=== PATIENT | female | born 1945 | race Caucasian/White ===

== ENCOUNTER 2017-05-01 21:49 | Inpatient (IN) | payer MEDICARE, BC ==
[2017-05-01] MEDS: IPRATROPIUM (NEB) 0.5 MG/2.5 ML AMP INH (22:43)
[2017-05-01] MEDS: ALBUTEROL 0.5% (NEB) 2.5 MG/0.5 ML AMP INH (22:43)
[2017-05-01 22:46] LABS: WHITE BLOOD COUNT 16.7 10^3/ul (4.8-10.8)
[2017-05-01 22:46] LABS: HEMATOCRIT 35.6 % (37.0-47.0); HEMOGLOBIN 11.8 g/dl (12.0-16.0); MEAN CORPUSCULAR HEMOGLOBIN 27.7 pg (29.0-33.0); MEAN CORPUSCULAR HGB CONC 33.1 g/dl (32.0-37.0); MEAN CORPUSCULAR VOLUME 83.6 fl (82.0-101.0); MEAN PLATELET VOLUME 9.6 fl (7.4-10.4); PLATELET COUNT 154 10^3/UL (140-415); RED BLOOD COUNT 4.26 10^6/ul (4.20-5.40)
[2017-05-01 22:50] LABS: ADD MAN DIFF? YES; POSITIVE DIFF @See below
[2017-05-01 23:03] LABS: ALANINE AMINOTRANSFERASE 48 IU/L (13-69); ALBUMIN 3.9 g/dl (3.3-4.9); ALBUMIN/GLOBULIN RATIO 1.11; ALKALINE PHOSPHATASE 59 IU/L (42-121); ANION GAP 18 (8-16); ASPARTATE AMINO TRANSFERASE 43 IU/L (15-46); BILIRUBIN,INDIRECT 0.6 mg/dl (0-1.1); BILIRUBIN,TOTAL 0.6 mg/dl (0.2-1.3); BLOOD UREA NITROGEN 19 mg/dl (7-20); CALCIUM 8.8 mg/dl (8.4-10.2); CARBON DIOXIDE 23 mmol/L (21-31); CHLORIDE 100 mmol/L (97-110); GLUCOSE 189 mg/dl (70-220); POTASSIUM 4.1 mmol/L (3.5-5.1); SODIUM 137 mmol/L (135-144); TOTAL PROTEIN 7.4 g/dl (6.1-8.1)
[2017-05-01 23:11] LABS: INR 1.19; PROTIME 15.3 Sec (11.9-14.9); PT RATIO 1.2
[2017-05-01 23:12] LABS: PARTIAL THROMBOPLASTIN TIME 34.6 Sec (25.0-35.0)
[2017-05-01 23:13] LABS: ANISOCYTOSIS 1+ (0-0); BAND NEUTROPHILS #M 1.6 10^3/ul (0.0-0.6); BAND NEUTROPHILS % (M) 10 % (0-4); GIANT THROMBO% (M) 1 % (0-0); LYMPHOCYTES #M 0.6 10^3/ul (0.8-2.9); LYMPHOCYTES % (M) 4 % (15-51); METAMYELOCYTES #M 0.1 10^3/ul (0.0-0.0); METAMYELOCYTES %M 1 % (0-0); MICROCYTOSIS 1+ (0-0); MONOCYTE #M 0.5 10^3/ul (0.3-0.9); MONOCYTES % (M) 3 % (0-11); PLATELET MORPHOLOGY COMMENT @See below; SEGMENTED NEUTROPHILS (M) % 82 % (39-77); SMUDGE%M 1 % (0-0)
[2017-05-01 23:15] LABS: B-TYPE NATRIURETIC PEPTIDE 1920 PG/ML (0-125); TROPONIN-I 0.037 ng/ml (0.00-0.12)
[2017-05-01] MEDS: SOD CHLORIDE 0.9% IV (23:38)
[2017-05-01] MEDS: ACETAMINOPHEN 500 MG TAB PO (23:42)
[2017-05-01 23:43] LABS: AADO2 Arterial 258.9 mmHg (7.0-24.0); Allen Test ACCEPTAB; Arterial Base Excess -5.9 mmol/L (-3.0-3); Arterial Blood Gas Oxygen Sat 94.6 mmHG (95.0-100.0); Arterial COHb 0.3 % (0.0-3.0); Arterial Fraction of Oxyhgb 94.1 % (93.0-99.0); Arterial MetHb 0.2 % (0.0-1.5); Arterial Total Hemglobin 13.4 g/dl (12.0-18.0); Arterial pCO2 35.4 mmhg (35-45); MODE AEROSOL MASK; Site Right Radial
[2017-05-01] MEDS: LORAZEPAM 2 MG INJ IV (23:53)
[2017-05-01] MEDS: ONDANSETRON 4 MG INJ IV (23:54)
[2017-05-02 00:14] LABS: LACTIC ACID 7.3 mmol/L (0.5-2.0)
[2017-05-02] MEDS: LEVOFLOXACIN 750MG/D5W (PMX) 150 ML IVPB (01:18)
[2017-05-02] MEDS ORDERED: ALBUTEROL HFA 8 GM INHALER INH (01:30)
[2017-05-02] MEDS ORDERED: NACL 0.9% 3 ML SYG IV (01:30)
[2017-05-02] MEDS ORDERED: GLUCAGON 1 MG INJ IM (02:00)
[2017-05-02] MEDS ORDERED: DEXTROSE 50% 50 ML SYRINGE IV ×2 (02:00)
[2017-05-02] MEDS: ACCU-CHEK XX (02:00)
[2017-05-02] MEDS ORDERED: VANCOMYCIN IV PER PHARMACY XX (02:00)
[2017-05-02] MEDS ORDERED: GLUCOSE GEL 15 GRAM TUBE PO (02:00)
[2017-05-02] MEDS ORDERED: GLUCOSE GEL 15 GRAM TUBE BUCCAL (02:00)
[2017-05-02] MEDS: ALBUMIN HUMAN 25% 100 ML IV ×2 (02:47→04:05)
[2017-05-02] MEDS: VANCOMYCIN 1 GM (PMX) 250 ML IVPB (02:51)
[2017-05-02 03:23] LABS: CREATINE KINASE 202 IU/L (23-200)
[2017-05-02 03:35] LABS: CK INDEX 0.9; CK-MB 1.84 ng/ml (0.0-2.4); TROPONIN-I 0.084 ng/ml (0.00-0.12)
[2017-05-02 05:10] LABS: ADD UMIC YES; UR ASCORBIC ACID NEGATIVE (NEGATIVE); UR BACTERIA FEW /HPF (NONE SEEN); UR BILIRUBIN (Dip) NEGATIVE (NEGATIVE); UR BLOOD (Dip) 1+ mg/dL (NEGATIVE); UR CLARITY CLOUDY (CLEAR); UR COLOR YELLOW (YELLOW); UR GLUCOSE (Dip) NEGATIVE (NEGATIVE); UR KETONES (Dip) NEGATIVE (NEGATIVE); UR LEUKOCYTE ESTERASE (Dip) NEGATIVE Leu/ul (NEGATIVE); UR MUCUS FEW /HPF (NONE SEEN); UR NITRITE (Dip) NEGATIVE (NEGATIVE); UR NONSQUAMOUS EPITHELIAL CELL <1 /HPF (NONE SEEN); UR RBC 13 /HPF (0-5); UR SPECIFIC GRAVITY (Dip) 1.015 (1.003-1.030); UR SQUAMOUS EPITHELIAL CELL MANY /HPF (FEW); UR TOTAL PROTEIN (Dip) 3+ mg/dl (NEGATIVE); UR TRANSITIONAL EPI CELL FEW /HPF (NONE SEEN); UR UROBILINOGEN (Dip) NEGATIVE (NEGATIVE); UR WBC 1 /HPF (0-5)
[2017-05-02] MEDS: LORAZEPAM 2 MG INJ IV ×2 (05:38→14:26)
[2017-05-02] MEDS: LEVOTHYROXINE 50 MCG TAB PO (05:57)
[2017-05-02] MEDS: PANTOPRAZOLE (EC) 40 MG TAB PO (06:22)
[2017-05-02 07:05] LABS: LACTIC ACID 2.7 mmol/L (0.5-2.0)
[2017-05-02] MEDS: FUROSEMIDE 20 MG INJ IV (07:30)
[2017-05-02] MEDS: INSULIN ASPART [NOVOLOG] 3 ML PEN SC ×4 (08:00→22:39)
[2017-05-02] MEDS: ALBUTEROL/IPRATROPIUM (NEB) 3 ML AMP HHN ×4 (08:12→21:31)
[2017-05-02] MEDS: INSULIN GLARGINE [LANtus] 3 ML PEN SC ×2 (08:36→22:36)
[2017-05-02] MEDS: CYCLOSPORINE 0.05% OPH DROPERETTE BOTH EYES ×2 (08:38→21:00)
[2017-05-02] MEDS: ESCITALOPRAM 10 MG TAB PO (08:39)
[2017-05-02] MEDS: ONDANSETRON 4 MG INJ IV ×2 (08:39→14:56)
[2017-05-02] MEDS: METHYLPREDNISOLONE 40 MG INJ IV ×2 (08:39→21:54)
[2017-05-02] MEDS: POTASSIUM CHLORIDE (SR) 20 MEQ TAB PO (08:40)
[2017-05-02] MEDS: ASPIRIN (EC) 81 MG TAB PO (08:40)
[2017-05-02 08:47] LABS: CREATINE KINASE 251 IU/L (23-200)
[2017-05-02 09:00] LABS: CK INDEX 1.4; CK-MB 3.54 ng/ml (0.0-2.4); TROPONIN-I 0.084 ng/ml (0.00-0.12)
[2017-05-02] MEDS: SALMETEROL/FLUTICASONE 250/50 INHA INH ×2 (09:41→21:00)
[2017-05-02 11:39] LABS: LACTIC ACID 3.4 mmol/L (0.5-2.0)
[2017-05-02] MEDS: VANCOMYCIN 1 GM 250 ML IVPB ×2 (13:50→22:53)
[2017-05-02 14:26] LABS: AADO2 Arterial 114.6 mmHg (7.0-24.0); Allen Test ACCEPTAB; Arterial Base Excess -6.2 mmol/L (-3.0-3); Arterial Blood Gas Oxygen Sat 92.4 mmHG (95.0-100.0); Arterial COHb 0.3 % (0.0-3.0); Arterial Fraction of Oxyhgb 92.1 % (93.0-99.0); Arterial HCO3 17.7 mmol/L (22.0-26.0); Arterial MetHb 0 % (0.0-1.5); Arterial Total Hemglobin 9.8 g/dl (12.0-18.0); Arterial pCO2 29.7 mmhg (35-45); Blood Gas IEPAP 18/6; MODE MASK - BIPAP; Site Right Radial
[2017-05-02] MEDS ORDERED: VANCOMYCIN 1.5 GM in DEXTROSE 5% 500 ML IVPB (21:00)
[2017-05-02] MEDS: ATORVASTATIN 20 MG TAB PO (21:54)
[2017-05-03] MEDS: ALBUTEROL/IPRATROPIUM (NEB) 3 ML AMP HHN ×6 (01:00→20:33)
[2017-05-03] MEDS: LEVOFLOXACIN 750MG/D5W (PMX) 150 ML IVPB (01:36)
[2017-05-03] MEDS: ALPRAZOLAM 0.5 MG TAB PO (01:37)
[2017-05-03] MEDS: ACCU-CHEK XX ×16 (02:00→23:15)
[2017-05-03 05:19] LABS: WHITE BLOOD COUNT 7.3 10^3/ul (4.8-10.8)
[2017-05-03 05:19] LABS: ABNORMAL IP MESSAGE 1; HEMATOCRIT 29.4 % (37.0-47.0); HEMOGLOBIN 9.4 g/dl (12.0-16.0); MEAN CORPUSCULAR HEMOGLOBIN 27.6 pg (29.0-33.0); MEAN CORPUSCULAR VOLUME 86.5 fl (82.0-101.0); MEAN PLATELET VOLUME 10.3 fl (7.4-10.4); PLATELET COUNT 117 10^3/UL (140-415); RED CELL DISTRIBUTION WIDTH 16.5 % (11.5-14.5)
[2017-05-03] MEDS: LABETALOL HCL 20MG INJ IV (05:43)
[2017-05-03 05:57] LABS: PHOSPHORUS 2.6 mg/dl (2.5-4.9)
[2017-05-03 06:17] LABS: POSITIVE DIFF @See below
[2017-05-03 06:19] LABS: ADD MAN DIFF? YES
[2017-05-03 06:25] LABS: ALANINE AMINOTRANSFERASE 32 IU/L (13-69); ALBUMIN 3.6 g/dl (3.3-4.9); ALBUMIN/GLOBULIN RATIO 1.28; ALKALINE PHOSPHATASE 55 IU/L (42-121); ANION GAP 16 (8-16); ASPARTATE AMINO TRANSFERASE 33 IU/L (15-46); BILIRUBIN,INDIRECT 0.3 mg/dl (0-1.1); BILIRUBIN,TOTAL 0.3 mg/dl (0.2-1.3); BLOOD UREA NITROGEN 26 mg/dl (7-20); CALCIUM 7.5 mg/dl (8.4-10.2); CARBON DIOXIDE 22 mmol/L (21-31); CHLORIDE 106 mmol/L (97-110); CHOL/HDL RATIO 4.8 RATIO; CHOLESTEROL 58 mg/dl (100-200); CREATININE 1.02 mg/dl (0.44-1.00); GLUCOSE 332 mg/dl (70-220); HDL CHOLESTEROL 12 mg/dl (33-92); LDL CHOLESTEROL,CALCULATED 24 mg/dl; MAGNESIUM 1.9 mg/dl (1.7-2.5); POTASSIUM 4.7 mmol/L (3.5-5.1); SODIUM 139 mmol/L (135-144); TOTAL PROTEIN 6.4 g/dl (6.1-8.1); TRIGLYCERIDES 111 mg/dl (0-149)
[2017-05-03 07:11] LABS: HEMOGLOBIN A1C 7.5 % (0-5.9)
[2017-05-03 08:02] LABS: THYROID STIMULATING HORMONE 0.213 MIU/L (0.465-4.680)
[2017-05-03 08:04] LABS: AADO2 Arterial 165.1 mmHg (7.0-24.0); Allen Test ACCEPTAB; Arterial Base Excess -2.5 mmol/L (-3.0-3); Arterial Blood Gas Oxygen Sat 94.5 mmHG (95.0-100.0); Arterial COHb 0.3 % (0.0-3.0); Arterial HCO3 22.6 mmol/L (22.0-26.0); Arterial MetHb 0.2 % (0.0-1.5); Arterial Total Hemglobin 9.9 g/dl (12.0-18.0); Arterial pCO2 40.1 mmhg (35-45); Blood Gas IEPAP 15/5; Blood Gas PS 10; MODE MASK - BIPAP; Site Right Radial
[2017-05-03 08:41] LABS: ANISOCYTOSIS 2+ (0-0); BAND NEUTROPHILS % (M) 15 % (0-4); LYMPHOCYTES #M 0.6 10^3/ul (0.8-2.9); LYMPHOCYTES % (M) 9 % (15-51); MICROCYTOSIS 2+ (0-0); MONOCYTE #M 0.1 10^3/ul (0.3-0.9); MONOCYTES % (M) 2 % (0-11); PLATELET ESTIMATE DECREASED; POIKILOCYTOSIS 2+ (0-0); POLYCHROMASIA 2+ (0-0); SEG NEUT #M 5.5 10^3/ul (1.7-7.5); SEGMENTED NEUTROPHILS (M) % 74 % (39-77); SMUDGE%M 3 % (0-0)
[2017-05-03] MEDS: SALMETEROL/FLUTICASONE 250/50 INHA INH ×2 (09:00→21:08)
[2017-05-03] MEDS: LEVOTHYROXINE 50 MCG TAB PO (09:02)
[2017-05-03] MEDS: METHYLPREDNISOLONE 40 MG INJ IV ×2 (09:02→21:08)
[2017-05-03] MEDS: POTASSIUM CHLORIDE (SR) 20 MEQ TAB PO (09:02)
[2017-05-03] MEDS: ASPIRIN (EC) 81 MG TAB PO (09:02)
[2017-05-03] MEDS: PANTOPRAZOLE (EC) 40 MG TAB PO (09:02)
[2017-05-03] MEDS: CYCLOSPORINE 0.05% OPH DROPERETTE BOTH EYES ×2 (09:03→21:08)
[2017-05-03] MEDS: ESCITALOPRAM 10 MG TAB PO (09:03)
[2017-05-03] MEDS ORDERED: DEXTROSE 50% 50 ML SYRINGE IV ×2 (09:30)
[2017-05-03] MEDS: LORAZEPAM 2 MG INJ IV ×2 (09:42→20:54)
[2017-05-03] MEDS: ONDANSETRON 4 MG INJ IV ×2 (09:42→21:38)
[2017-05-03] MEDS: INSULIN HUMAN REGULAR 100 UNIT in SOD CHLORIDE 0.9% 99 ML IV ×2 (10:50→20:00)
[2017-05-03] MEDS: INSULIN ASPART [NOVOLOG] 3 ML PEN SC ×2 (11:30→17:35)
[2017-05-03] MEDS: VANCOMYCIN 1 GM 250 ML IVPB ×2 (11:49→23:15)
[2017-05-03] MEDS: ATORVASTATIN 20 MG TAB PO (21:08)
[2017-05-03] MEDS: ACETAMINOPHEN 325 MG TAB PO (21:09)
[2017-05-03 22:43] LABS: VANCOMYCIN,TROUGH 13.4 ug/ml (10.0-20.0)
[2017-05-04] MEDS: ACCU-CHEK XX ×24 (00:22→23:30)
[2017-05-04] MEDS: ALBUTEROL/IPRATROPIUM (NEB) 3 ML AMP HHN ×5 (01:26→20:00)
[2017-05-04] MEDS: LEVOFLOXACIN 750MG/D5W (PMX) 150 ML IVPB (01:42)
[2017-05-04 06:13] LABS: AADO2 Arterial 168.7 mmHg (7.0-24.0); Allen Test ACCEPTAB; Arterial Blood Gas Oxygen Sat 94.5 mmHG (95.0-100.0); Arterial COHb 0.3 % (0.0-3.0); Arterial HCO3 23.5 mmol/L (22.0-26.0); Arterial MetHb 0.2 % (0.0-1.5); Arterial Total Hemglobin 11.1 g/dl (12.0-18.0); Arterial pCO2 38.2 mmhg (35-45); Blood Gas IEPAP 15/5; Blood Gas PS 10; MODE MASK - BIPAP; Site Right Radial
[2017-05-04] MEDS: PANTOPRAZOLE (EC) 40 MG TAB PO (06:27)
[2017-05-04] MEDS: LEVOTHYROXINE 50 MCG TAB PO (06:27)
[2017-05-04 06:38] LABS: ADD MAN DIFF? NO
[2017-05-04 06:46] LABS: WHITE BLOOD COUNT 6.1 10^3/ul (4.8-10.8)
[2017-05-04 06:46] LABS: ABNORMAL IP MESSAGE 1; HEMATOCRIT 29.2 % (37.0-47.0); HEMOGLOBIN 9.3 g/dl (12.0-16.0); LYMPHOCYTES # 0.4 10^3/ul (0.8-2.9); LYMPHOCYTES % 7.2 % (15.0-51.0); MEAN CORPUSCULAR HEMOGLOBIN 27.4 pg (29.0-33.0); MEAN CORPUSCULAR HGB CONC 31.8 g/dl (32.0-37.0); MEAN CORPUSCULAR VOLUME 86.1 fl (82.0-101.0); MEAN PLATELET VOLUME 10.6 fl (7.4-10.4); MONOCYTE # 0.2 10^3/ul (0.3-0.9); MONOCYTES % 3.4 % (0.0-11.0); NEUTROPHIL # 5.4 10^3/ul (1.6-7.5); NEUTROPHILS % 88.6 % (39.0-77.0); PLATELET COUNT 169 10^3/UL (140-415); RED BLOOD COUNT 3.39 10^6/ul (4.20-5.40); RED CELL DISTRIBUTION WIDTH 16.4 % (11.5-14.5)
[2017-05-04 07:00] LABS: POSITIVE DIFF @See below
[2017-05-04 07:14] LABS: ALANINE AMINOTRANSFERASE 42 IU/L (13-69); ALBUMIN 3.5 g/dl (3.3-4.9); ALBUMIN/GLOBULIN RATIO 1.12; ALKALINE PHOSPHATASE 55 IU/L (42-121); ANION GAP 16 (8-16); ASPARTATE AMINO TRANSFERASE 44 IU/L (15-46); BILIRUBIN,INDIRECT 0.3 mg/dl (0-1.1); BILIRUBIN,TOTAL 0.3 mg/dl (0.2-1.3); BLOOD UREA NITROGEN 42 mg/dl (7-20); CALCIUM 8.2 mg/dl (8.4-10.2); CARBON DIOXIDE 24 mmol/L (21-31); CHLORIDE 110 mmol/L (97-110); CREATININE 1.06 mg/dl (0.44-1.00); GLUCOSE 143 mg/dl (70-220); POTASSIUM 4.4 mmol/L (3.5-5.1); SODIUM 146 mmol/L (135-144); TOTAL PROTEIN 6.6 g/dl (6.1-8.1)
[2017-05-04] MEDS: INSULIN ASPART [NOVOLOG] 3 ML PEN SC ×3 (07:35→17:35)
[2017-05-04] MEDS: CYCLOSPORINE 0.05% OPH DROPERETTE BOTH EYES ×2 (08:24→08:48)
[2017-05-04] MEDS: POTASSIUM CHLORIDE (SR) 20 MEQ TAB PO (08:48)
[2017-05-04] MEDS: ACETAMINOPHEN 325 MG TAB PO (08:48)
[2017-05-04] MEDS: DOCUSATE SODIUM 100 MG CAP PO (08:48)
[2017-05-04] MEDS: LORATADINE 10 MG TAB PO (08:48)
[2017-05-04] MEDS: ESCITALOPRAM 10 MG TAB PO (08:48)
[2017-05-04] MEDS: ASPIRIN (EC) 81 MG TAB PO (08:48)
[2017-05-04] MEDS: SALMETEROL/FLUTICASONE 250/50 INHA INH ×2 (08:49→20:45)
[2017-05-04] MEDS: METHYLPREDNISOLONE 40 MG INJ IV ×2 (08:49→20:45)
[2017-05-04] MEDS: LABETALOL HCL 20MG INJ IV ×2 (08:52→18:34)
[2017-05-04] MEDS: INSULIN HUMAN REGULAR 100 UNIT in SOD CHLORIDE 0.9% 99 ML IV (11:31)
[2017-05-04] MEDS: VANCOMYCIN 1.25 GM in SODIUM CHLORIDE 0.45 % 250 ML IVPB (11:47)
[2017-05-04] MEDS: LORAZEPAM 2 MG INJ IV (18:29)
[2017-05-04] MEDS: NACL 3% FOR INHALATION 15 ML NEBU NEB (19:20)
[2017-05-04] MEDS: ATORVASTATIN 20 MG TAB PO (20:45)
[2017-05-05] MEDS: ACCU-CHEK XX ×24 (00:30→23:30)
[2017-05-05] MEDS: LEVOFLOXACIN 750MG/D5W (PMX) 150 ML IVPB (00:33)
[2017-05-05] MEDS: ALBUTEROL/IPRATROPIUM (NEB) 3 ML AMP HHN ×6 (01:01→21:00)
[2017-05-05 05:52] LABS: ADD MAN DIFF? NO
[2017-05-05 06:04] LABS: WHITE BLOOD COUNT 6.5 10^3/ul (4.8-10.8)
[2017-05-05 06:04] LABS: BASOPHILS % 0.2 % (0.0-2.0); HEMATOCRIT 28.4 % (37.0-47.0); HEMOGLOBIN 9.3 g/dl (12.0-16.0); LYMPHOCYTES # 0.8 10^3/ul (0.8-2.9); LYMPHOCYTES % 12.5 % (15.0-51.0); MEAN CORPUSCULAR HGB CONC 32.7 g/dl (32.0-37.0); MEAN CORPUSCULAR VOLUME 85.5 fl (82.0-101.0); MEAN PLATELET VOLUME 10.3 fl (7.4-10.4); MONOCYTE # 0.5 10^3/ul (0.3-0.9); MONOCYTES % 7.6 % (0.0-11.0); NEUTROPHIL # 5.1 10^3/ul (1.6-7.5); NEUTROPHILS % 78.5 % (39.0-77.0); PLATELET COUNT 214 10^3/UL (140-415); RED BLOOD COUNT 3.32 10^6/ul (4.20-5.40)
[2017-05-05 06:12] LABS: ALANINE AMINOTRANSFERASE 45 IU/L (13-69); ALBUMIN 3.5 g/dl (3.3-4.9); ALBUMIN/GLOBULIN RATIO 1.12; ALKALINE PHOSPHATASE 46 IU/L (42-121); ANION GAP 15 (8-16); ASPARTATE AMINO TRANSFERASE 44 IU/L (15-46); BILIRUBIN,INDIRECT 0.5 mg/dl (0-1.1); BILIRUBIN,TOTAL 0.5 mg/dl (0.2-1.3); BLOOD UREA NITROGEN 43 mg/dl (7-20); CALCIUM 8.3 mg/dl (8.4-10.2); CARBON DIOXIDE 25 mmol/L (21-31); CHLORIDE 111 mmol/L (97-110); CREATININE 1.05 mg/dl (0.44-1.00); GLUCOSE 132 mg/dl (70-220); POTASSIUM 4.4 mmol/L (3.5-5.1); SODIUM 147 mmol/L (135-144); TOTAL PROTEIN 6.6 g/dl (6.1-8.1)
[2017-05-05] MEDS: LEVOTHYROXINE 50 MCG TAB PO (06:17)
[2017-05-05] MEDS: PANTOPRAZOLE (EC) 40 MG TAB PO (06:18)
[2017-05-05] MEDS: LABETALOL HCL 20MG INJ IV (07:08)
[2017-05-05] MEDS: INSULIN ASPART [NOVOLOG] 3 ML PEN SC ×3 (07:35→17:35)
[2017-05-05] MEDS: CYCLOSPORINE 0.05% OPH DROPERETTE BOTH EYES ×2 (09:00→20:48)
[2017-05-05] MEDS: METHYLPREDNISOLONE 40 MG INJ IV ×2 (09:38→20:40)
[2017-05-05] MEDS: ONDANSETRON 4 MG INJ IV (09:38)
[2017-05-05] MEDS: SALMETEROL/FLUTICASONE 250/50 INHA INH ×2 (09:42→20:48)
[2017-05-05] MEDS: POTASSIUM CHLORIDE (SR) 20 MEQ TAB PO (09:45)
[2017-05-05] MEDS: ESCITALOPRAM 10 MG TAB PO (09:46)
[2017-05-05] MEDS: ASPIRIN (EC) 81 MG TAB PO (09:46)
[2017-05-05] MEDS: ACETAMINOPHEN 325 MG TAB PO ×3 (10:08→20:41)
[2017-05-05] MEDS: INSULIN HUMAN REGULAR 100 UNIT in SOD CHLORIDE 0.9% 99 ML IV (12:36)
[2017-05-05] MEDS: LORAZEPAM 2 MG INJ IV (14:06)
[2017-05-05] MEDS: CLINDAMYCIN 600 MG/D5W (PMX) 50 ML IVPB ×2 (14:52→19:00)
[2017-05-05] MEDS: PRIMAQUINE 15 MG TAB PO (15:10)
[2017-05-05] MEDS: ATORVASTATIN 20 MG TAB PO (20:40)
[2017-05-06] MEDS: ACCU-CHEK XX ×24 (00:30→23:40)
[2017-05-06] MEDS: ALBUTEROL/IPRATROPIUM (NEB) 3 ML AMP HHN ×6 (00:46→20:06)
[2017-05-06] MEDS: CLINDAMYCIN 600 MG/D5W (PMX) 50 ML IVPB ×5 (00:52→23:44)
[2017-05-06] MEDS: ONDANSETRON 4 MG INJ IV ×3 (01:16→18:48)
[2017-05-06] MEDS: LEVOFLOXACIN 750MG/D5W (PMX) 150 ML IVPB (01:16)
[2017-05-06] MEDS: LORAZEPAM 2 MG INJ IV ×2 (04:44→20:30)
[2017-05-06] MEDS: ACETAMINOPHEN 325 MG TAB PO ×2 (04:44→18:49)
[2017-05-06 06:02] LABS: ADD MAN DIFF? NO
[2017-05-06 06:16] LABS: WHITE BLOOD COUNT 6.7 10^3/ul (4.8-10.8)
[2017-05-06 06:16] LABS: BASOPHILS % 0.2 % (0.0-2.0); HEMATOCRIT 28.7 % (37.0-47.0); HEMOGLOBIN 9.3 g/dl (12.0-16.0); LYMPHOCYTES # 0.7 10^3/ul (0.8-2.9); MEAN CORPUSCULAR HEMOGLOBIN 27.5 pg (29.0-33.0); MEAN CORPUSCULAR HGB CONC 32.4 g/dl (32.0-37.0); MEAN CORPUSCULAR VOLUME 84.9 fl (82.0-101.0); MEAN PLATELET VOLUME 9.8 fl (7.4-10.4); MONOCYTE # 0.6 10^3/ul (0.3-0.9); MONOCYTES % 9.3 % (0.0-11.0); NEUTROPHIL # 5.2 10^3/ul (1.6-7.5); PLATELET COUNT 251 10^3/UL (140-415); RED BLOOD COUNT 3.38 10^6/ul (4.20-5.40); RED CELL DISTRIBUTION WIDTH 16.8 % (11.5-14.5)
[2017-05-06] MEDS: LEVOTHYROXINE 50 MCG TAB PO (06:29)
[2017-05-06] MEDS: INSULIN HUMAN REGULAR 100 UNIT in SOD CHLORIDE 0.9% 99 ML IV ×2 (06:29→23:51)
[2017-05-06] MEDS: PANTOPRAZOLE (EC) 40 MG TAB PO (06:29)
[2017-05-06 06:44] LABS: ALANINE AMINOTRANSFERASE 47 IU/L (13-69); ALBUMIN 3.3 g/dl (3.3-4.9); ALKALINE PHOSPHATASE 46 IU/L (42-121); ANION GAP 14 (8-16); ASPARTATE AMINO TRANSFERASE 42 IU/L (15-46); BILIRUBIN,INDIRECT 0.7 mg/dl (0-1.1); BILIRUBIN,TOTAL 0.7 mg/dl (0.2-1.3); BLOOD UREA NITROGEN 37 mg/dl (7-20); CALCIUM 8.7 mg/dl (8.4-10.2); CARBON DIOXIDE 27 mmol/L (21-31); CHLORIDE 108 mmol/L (97-110); CREATININE 0.97 mg/dl (0.44-1.00); GLUCOSE 158 mg/dl (70-220); POTASSIUM 4.3 mmol/L (3.5-5.1); SODIUM 145 mmol/L (135-144); TOTAL PROTEIN 6.6 g/dl (6.1-8.1)
[2017-05-06] MEDS: INSULIN ASPART [NOVOLOG] 3 ML PEN SC ×2 (07:34→11:30)
[2017-05-06 08:25] LABS: HEMOGLOBIN A1C 7.6 % (0-5.9)
[2017-05-06] MEDS: ASPIRIN (EC) 81 MG TAB PO (08:48)
[2017-05-06] MEDS: POTASSIUM CHLORIDE (SR) 20 MEQ TAB PO (08:48)
[2017-05-06] MEDS: PRIMAQUINE 15 MG TAB PO (08:48)
[2017-05-06] MEDS: ESCITALOPRAM 10 MG TAB PO (08:48)
[2017-05-06] MEDS: METHYLPREDNISOLONE 40 MG INJ IV ×2 (08:48→20:29)
[2017-05-06] MEDS: SALMETEROL/FLUTICASONE 250/50 INHA INH ×2 (08:56→20:29)
[2017-05-06] MEDS: CYCLOSPORINE 0.05% OPH DROPERETTE BOTH EYES ×2 (08:56→20:29)
[2017-05-06] MEDS: ATORVASTATIN 20 MG TAB PO (20:29)
[2017-05-07] MEDS: ALBUTEROL/IPRATROPIUM (NEB) 3 ML AMP HHN ×7 (00:46→20:01)
[2017-05-07] MEDS: ACCU-CHEK XX ×18 (01:20→17:30)
[2017-05-07] MEDS: LEVOFLOXACIN 750MG/D5W (PMX) 150 ML IVPB (01:22)
[2017-05-07] MEDS: CLINDAMYCIN 600 MG/D5W (PMX) 50 ML IVPB ×4 (05:38→23:15)
[2017-05-07 06:24] LABS: ADD MAN DIFF? NO
[2017-05-07 06:26] LABS: WHITE BLOOD COUNT 6.3 10^3/ul (4.8-10.8)
[2017-05-07 06:26] LABS: BASOPHILS % 0.2 % (0.0-2.0); HEMATOCRIT 28.8 % (37.0-47.0); HEMOGLOBIN 9.5 g/dl (12.0-16.0); LYMPHOCYTES # 1.4 10^3/ul (0.8-2.9); LYMPHOCYTES % 21.8 % (15.0-51.0); MEAN CORPUSCULAR HEMOGLOBIN 28.1 pg (29.0-33.0); MEAN CORPUSCULAR VOLUME 85.2 fl (82.0-101.0); MEAN PLATELET VOLUME 9.2 fl (7.4-10.4); MONOCYTE # 0.6 10^3/ul (0.3-0.9); NEUTROPHIL # 4.2 10^3/ul (1.6-7.5); NEUTROPHILS % 66.1 % (39.0-77.0); NUCLEATED RED BLOOD CELLS% 0.3 /100WBC (0.0-0.0); PLATELET COUNT 232 10^3/UL (140-415); RED BLOOD COUNT 3.38 10^6/ul (4.20-5.40); RED CELL DISTRIBUTION WIDTH 16.7 % (11.5-14.5)
[2017-05-07] MEDS: LEVOTHYROXINE 50 MCG TAB PO (06:32)
[2017-05-07] MEDS: PANTOPRAZOLE (EC) 40 MG TAB PO (06:32)
[2017-05-07 07:08] LABS: ALANINE AMINOTRANSFERASE 39 IU/L (13-69); ALBUMIN 3.3 g/dl (3.3-4.9); ALBUMIN/GLOBULIN RATIO 1.22; ALKALINE PHOSPHATASE 43 IU/L (42-121); ANION GAP 16 (8-16); ASPARTATE AMINO TRANSFERASE 33 IU/L (15-46); BILIRUBIN,INDIRECT 0.8 mg/dl (0-1.1); BILIRUBIN,TOTAL 0.8 mg/dl (0.2-1.3); BLOOD UREA NITROGEN 32 mg/dl (7-20); CALCIUM 8.5 mg/dl (8.4-10.2); CARBON DIOXIDE 27 mmol/L (21-31); CHLORIDE 106 mmol/L (97-110); CREATININE 0.95 mg/dl (0.44-1.00); GLUCOSE 141 mg/dl (70-220); POTASSIUM 4.2 mmol/L (3.5-5.1); SODIUM 145 mmol/L (135-144)
[2017-05-07] MEDS: CYCLOSPORINE 0.05% OPH DROPERETTE BOTH EYES (09:00)
[2017-05-07] MEDS: SALMETEROL/FLUTICASONE 250/50 INHA INH ×2 (09:10→20:27)
[2017-05-07] MEDS: METHYLPREDNISOLONE 40 MG INJ IV ×2 (09:10→20:26)
[2017-05-07] MEDS: POTASSIUM CHLORIDE (SR) 20 MEQ TAB PO (09:11)
[2017-05-07] MEDS: ASPIRIN (EC) 81 MG TAB PO (09:11)
[2017-05-07] MEDS: ESCITALOPRAM 10 MG TAB PO (09:11)
[2017-05-07] MEDS: ONDANSETRON 4 MG INJ IV (09:27)
[2017-05-07] MEDS: PRIMAQUINE 15 MG TAB PO (10:34)
[2017-05-07] MEDS: INSULIN ASPART [NOVOLOG] 3 ML PEN SC ×5 (11:30→20:28)
[2017-05-07] MEDS: INSULIN GLARGINE [LANtus] 3 ML PEN SC ×2 (12:22→20:29)
[2017-05-07] MEDS: ACETAMINOPHEN 325 MG TAB PO (16:16)
[2017-05-07] MEDS: NYSTATIN SUSP 5 ML CUP PO ×2 (17:00→20:26)
[2017-05-07] MEDS: FLUCONAZOLE 200 MG/NS (PMX) 100 ML IVPB (17:26)
[2017-05-07 17:41] LABS: HISTOPLASMA GALACTOMANNAN AG U <0.5 ng/mL
[2017-05-07] MEDS: ATORVASTATIN 20 MG TAB PO (20:27)
[2017-05-07] MEDS: NPH, HUMAN INSULIN ISOPHANE 3ML VIAL SC (20:30)
[2017-05-07] MEDS: LORAZEPAM 2 MG INJ IV (20:35)
[2017-05-08] MEDS: LEVOFLOXACIN 750MG/D5W (PMX) 150 ML IVPB (00:12)
[2017-05-08] MEDS: ALBUTEROL/IPRATROPIUM (NEB) 3 ML AMP HHN ×6 (01:12→21:13)
[2017-05-08] MEDS: ACCU-CHEK XX (01:41)
[2017-05-08] MEDS: ACETAMINOPHEN 325 MG TAB PO ×2 (01:41→10:40)
[2017-05-08] MEDS: CLINDAMYCIN 600 MG/D5W (PMX) 50 ML IVPB ×3 (05:17→19:49)
[2017-05-08 05:49] LABS: ADD MAN DIFF? NO
[2017-05-08 06:01] LABS: HEMATOCRIT 28.2 % (37.0-47.0); HEMOGLOBIN 9.3 g/dl (12.0-16.0); LYMPHOCYTES # 0.7 10^3/ul (0.8-2.9); LYMPHOCYTES % 12.5 % (15.0-51.0); MEAN CORPUSCULAR HEMOGLOBIN 28.1 pg (29.0-33.0); MEAN CORPUSCULAR VOLUME 85.2 fl (82.0-101.0); MONOCYTE # 0.3 10^3/ul (0.3-0.9); MONOCYTES % 5.4 % (0.0-11.0); NEUTROPHIL # 4.5 10^3/ul (1.6-7.5); NEUTROPHILS % 80.1 % (39.0-77.0); PLATELET COUNT 239 10^3/UL (140-415); RED BLOOD COUNT 3.31 10^6/ul (4.20-5.40); RED CELL DISTRIBUTION WIDTH 16.6 % (11.5-14.5)
[2017-05-08 06:01] LABS: WHITE BLOOD COUNT 5.6 10^3/ul (4.8-10.8)
[2017-05-08] MEDS: PANTOPRAZOLE (EC) 40 MG TAB PO (06:22)
[2017-05-08] MEDS: LEVOTHYROXINE 50 MCG TAB PO (06:22)
[2017-05-08] MEDS: ONDANSETRON 4 MG INJ IV ×2 (06:22→10:40)
[2017-05-08 06:48] LABS: ANION GAP 16 (8-16); BLOOD UREA NITROGEN 28 mg/dl (7-20); CALCIUM 8.6 mg/dl (8.4-10.2); CARBON DIOXIDE 27 mmol/L (21-31); CHLORIDE 100 mmol/L (97-110); CREATININE 1.02 mg/dl (0.44-1.00); GLUCOSE 214 mg/dl (70-220); MAGNESIUM 1.7 mg/dl (1.7-2.5); PHOSPHORUS 4.9 mg/dl (2.5-4.9); POTASSIUM 5.1 mmol/L (3.5-5.1); SODIUM 138 mmol/L (135-144)
[2017-05-08] MEDS: INSULIN ASPART [NOVOLOG] 3 ML PEN SC ×7 (08:21→20:54)
[2017-05-08 08:32] LABS: AADO2 Arterial 249.7 mmHg (7.0-24.0); Allen Test ACCEPTAB; Arterial Base Excess 0.8 mmol/L (-3.0-3); Arterial Blood Gas Oxygen Sat 93.6 mmHG (95.0-100.0); Arterial COHb 0.7 % (0.0-3.0); Arterial Fraction of Oxyhgb 92.9 % (93.0-99.0); Arterial HCO3 24.1 mmol/L (22.0-26.0); Arterial MetHb 0.1 % (0.0-1.5); Arterial Total Hemglobin 11.5 g/dl (12.0-18.0); MODE HFNC; Site Right Radial
[2017-05-08] MEDS: ESCITALOPRAM 10 MG TAB PO (09:18)
[2017-05-08] MEDS: ASPIRIN (EC) 81 MG TAB PO (09:18)
[2017-05-08] MEDS: NYSTATIN SUSP 5 ML CUP PO ×4 (09:18→21:00)
[2017-05-08] MEDS: PRIMAQUINE 15 MG TAB PO (09:19)
[2017-05-08] MEDS: POTASSIUM CHLORIDE (SR) 20 MEQ TAB PO (09:20)
[2017-05-08] MEDS: NPH, HUMAN INSULIN ISOPHANE 3ML VIAL SC ×2 (09:21→20:58)
[2017-05-08] MEDS: INSULIN GLARGINE [LANtus] 3 ML PEN SC ×2 (09:22→20:58)
[2017-05-08] MEDS: METHYLPREDNISOLONE 40 MG INJ IV ×2 (09:22→20:52)
[2017-05-08] MEDS: SALMETEROL/FLUTICASONE 250/50 INHA INH ×2 (09:38→20:52)
[2017-05-08 10:31] LABS: LYMPHOCYTE - % CD4 (HELPER) 40 % (30-61); LYMPHOCYTE - %CD8 (SUPPRESSOR) 8 % (12-42); LYMPHOCYTE - ABSOLUTE 579 cells/uL (850-3900); LYMPHOCYTE - ABSOLUTE CD4 234 cells/uL (490-1740); LYMPHOCYTE - ABSOLUTE CD8 44 cells/uL (180-1170); LYMPHOCYTE - CD4/CD8 RATIO 5.31 (0.86-5.00)
[2017-05-08 12:01] LABS: CYTOMEGALOVIRUS ANTIBODY (IGG) <0.60 U/mL; CYTOMEGALOVIRUS ANTIBODY (IGM) <30.00 AU/mL
[2017-05-08 15:01] LABS: NIL 0.02 IU/mL; QUANTIFERON(R)-TB GOLD INDETERMINATE (NEGATIVE); TB-NIL 0.01 IU/mL
[2017-05-08] MEDS: LORAZEPAM 2 MG INJ IV (17:14)
[2017-05-08 17:55] LABS: MYCOPLASMA PNEUMONIAE AB (IGG) 0.98
[2017-05-08] MEDS: FLUCONAZOLE 200 MG/NS (PMX) 100 ML IVPB (17:55)
[2017-05-08 18:41] LABS: EBV VIRAL CAPSID AG AB (IGM) <36.00 U/mL
[2017-05-08] MEDS: ATORVASTATIN 20 MG TAB PO (20:52)
[2017-05-08] MEDS: HEPARIN 5,000 UNIT/0.5 ML VIAL SC (20:57)
[2017-05-09] MEDS: ALBUTEROL/IPRATROPIUM (NEB) 3 ML AMP HHN ×6 (00:28→21:10)
[2017-05-09] MEDS: CLINDAMYCIN 600 MG/D5W (PMX) 50 ML IVPB ×4 (00:44→18:23)
[2017-05-09] MEDS: ACCU-CHEK XX (02:00)
[2017-05-09] MEDS: LEVOFLOXACIN 750MG/D5W (PMX) 150 ML IVPB (02:13)
[2017-05-09] MEDS: ACETAMINOPHEN 325 MG TAB PO ×2 (06:08)
[2017-05-09] MEDS: LEVOTHYROXINE 50 MCG TAB PO (06:53)
[2017-05-09] MEDS: PANTOPRAZOLE (EC) 40 MG TAB PO (06:53)
[2017-05-09 07:22] LABS: ADD MAN DIFF? NO
[2017-05-09 07:28] LABS: HEMATOCRIT 31.5 % (37.0-47.0); HEMOGLOBIN 10.1 g/dl (12.0-16.0); LYMPHOCYTES # 0.7 10^3/ul (0.8-2.9); LYMPHOCYTES % 9.8 % (15.0-51.0); MEAN CORPUSCULAR HEMOGLOBIN 27.6 pg (29.0-33.0); MEAN CORPUSCULAR HGB CONC 32.1 g/dl (32.0-37.0); MEAN CORPUSCULAR VOLUME 86.1 fl (82.0-101.0); MEAN PLATELET VOLUME 9.8 fl (7.4-10.4); MONOCYTE # 0.3 10^3/ul (0.3-0.9); MONOCYTES % 4.7 % (0.0-11.0); NEUTROPHIL # 5.9 10^3/ul (1.6-7.5); NEUTROPHILS % 84.5 % (39.0-77.0); PLATELET COUNT 299 10^3/UL (140-415); RED BLOOD COUNT 3.66 10^6/ul (4.20-5.40); RED CELL DISTRIBUTION WIDTH 16.5 % (11.5-14.5)
[2017-05-09 07:50] LABS: INR 1.06; PROTIME 13.9 Sec (11.9-14.9); PT RATIO 1.1
[2017-05-09 08:07] LABS: ALANINE AMINOTRANSFERASE 35 IU/L (13-69); ALBUMIN 3.4 g/dl (3.3-4.9); ALBUMIN/GLOBULIN RATIO 1.13; ALKALINE PHOSPHATASE 47 IU/L (42-121); ANION GAP 15 (8-16); ASPARTATE AMINO TRANSFERASE 35 IU/L (15-46); BILIRUBIN,INDIRECT 0.8 mg/dl (0-1.1); BILIRUBIN,TOTAL 0.8 mg/dl (0.2-1.3); BLOOD UREA NITROGEN 33 mg/dl (7-20); CALCIUM 9.4 mg/dl (8.4-10.2); CARBON DIOXIDE 27 mmol/L (21-31); CHLORIDE 99 mmol/L (97-110); CREATININE 1.12 mg/dl (0.44-1.00); GLUCOSE 196 mg/dl (70-220); SODIUM 136 mmol/L (135-144); TOTAL PROTEIN 6.4 g/dl (6.1-8.1)
[2017-05-09] MEDS: PRIMAQUINE 15 MG TAB PO (08:30)
[2017-05-09] MEDS: ASPIRIN (EC) 81 MG TAB PO (08:30)
[2017-05-09] MEDS: METHYLPREDNISOLONE 40 MG INJ IV ×2 (08:30→20:18)
[2017-05-09] MEDS: ESCITALOPRAM 10 MG TAB PO (08:30)
[2017-05-09] MEDS: POTASSIUM CHLORIDE (SR) 20 MEQ TAB PO (08:30)
[2017-05-09] MEDS: NYSTATIN SUSP 5 ML CUP PO ×2 (08:30→12:16)
[2017-05-09] MEDS: SALMETEROL/FLUTICASONE 250/50 INHA INH ×2 (08:31→20:13)
[2017-05-09] MEDS: INSULIN ASPART [NOVOLOG] 3 ML PEN SC ×7 (08:32→20:25)
[2017-05-09] MEDS: INSULIN GLARGINE [LANtus] 3 ML PEN SC ×2 (08:33→20:24)
[2017-05-09] MEDS: HEPARIN 5,000 UNIT/0.5 ML VIAL SC ×2 (08:33→20:34)
[2017-05-09] MEDS: NPH, HUMAN INSULIN ISOPHANE 3ML VIAL SC ×2 (08:33→20:33)
[2017-05-09 09:04] LABS: Allen Test ACCEPTAB; Arterial Blood Gas Oxygen Sat 92.3 mmHG (95.0-100.0); Arterial COHb 0.3 % (0.0-3.0); Arterial Fraction of Oxyhgb 91.7 % (93.0-99.0); Arterial HCO3 27.9 mmol/L (22.0-26.0); Arterial MetHb 0.3 % (0.0-1.5); Arterial Total Hemglobin 10.5 g/dl (12.0-18.0); Arterial pCO2 39.3 mmhg (35-45); MODE NASAL CANNULA; Site Right Radial
[2017-05-09] MEDS: LORAZEPAM 2 MG INJ IV ×2 (13:23→22:07)
[2017-05-09] MEDS: DOCUSATE SODIUM 100 MG CAP PO (16:53)
[2017-05-09] MEDS: BISACODYL (EC) 5 MG TAB PO (16:53)
[2017-05-09] MEDS: FLUCONAZOLE 200 MG/NS (PMX) 100 ML IVPB (16:54)
[2017-05-09 19:19] LABS: PNEUM JIROVECCI SRC SPUTUM; PNEUMOCYSTIS JIROVECCI DFA NOT DETECTED
[2017-05-09] MEDS: ATORVASTATIN 20 MG TAB PO (20:26)
[2017-05-09] MEDS: ONDANSETRON 4 MG INJ IV (20:46)
[2017-05-10] MEDS: ALBUTEROL/IPRATROPIUM (NEB) 3 ML AMP HHN ×6 (01:19→20:47)
[2017-05-10] MEDS: ACCU-CHEK XX (01:52)
[2017-05-10] MEDS: LEVOTHYROXINE 50 MCG TAB PO ×2 (06:01→06:32)
[2017-05-10] MEDS: LEVOFLOXACIN 500 MG TAB PO (06:01)
[2017-05-10] MEDS: PANTOPRAZOLE (EC) 40 MG TAB PO ×2 (06:02→06:32)
[2017-05-10] MEDS: ASPIRIN (EC) 81 MG TAB PO (08:24)
[2017-05-10] MEDS: ESCITALOPRAM 10 MG TAB PO (08:25)
[2017-05-10] MEDS: DOXYCYCLINE 100 MG TAB PO ×2 (08:25→21:08)
[2017-05-10] MEDS: FLUCONAZOLE 100 MG TAB PO (08:26)
[2017-05-10] MEDS: METHYLPREDNISOLONE 40 MG INJ IV ×2 (08:26→21:07)
[2017-05-10] MEDS: HEPARIN 5,000 UNIT/0.5 ML VIAL SC ×2 (08:28→21:12)
[2017-05-10] MEDS: SALMETEROL/FLUTICASONE 250/50 INHA INH ×2 (08:30→21:06)
[2017-05-10] MEDS: INSULIN ASPART [NOVOLOG] 3 ML PEN SC ×7 (08:30→21:00)
[2017-05-10] MEDS: INSULIN GLARGINE [LANtus] 3 ML PEN SC ×2 (08:31→21:14)
[2017-05-10] MEDS: NPH, HUMAN INSULIN ISOPHANE 3ML VIAL SC ×2 (08:33→21:13)
[2017-05-10] MEDS: POTASSIUM CHLORIDE (SR) 20 MEQ TAB PO (09:00)
[2017-05-10] MEDS: DOCUSATE SODIUM 100 MG CAP PO ×2 (12:40→21:07)
[2017-05-10] MEDS: BISACODYL (EC) 5 MG TAB PO ×2 (12:40→21:07)
[2017-05-10] MEDS: LORAZEPAM 2 MG INJ IV ×2 (13:39→21:15)
[2017-05-10] MEDS: ACETAMINOPHEN 325 MG TAB PO (21:07)
[2017-05-10] MEDS: ATORVASTATIN 20 MG TAB PO (21:08)
[2017-05-11] MEDS: hydrALAzine 20 MG INJ IV ×2 (00:31→02:47)
[2017-05-11] MEDS: ALBUTEROL/IPRATROPIUM (NEB) 3 ML AMP HHN ×6 (01:33→21:20)
[2017-05-11] MEDS: ACCU-CHEK XX (02:22)
[2017-05-11] MEDS: METOPROLOL 50 MG TAB PO ×3 (02:47→20:19)
[2017-05-11] MEDS: LEVOTHYROXINE 50 MCG TAB PO (06:33)
[2017-05-11] MEDS: LEVOFLOXACIN 500 MG TAB PO (06:33)
[2017-05-11] MEDS: PANTOPRAZOLE (EC) 40 MG TAB PO (06:33)
[2017-05-11] MEDS: LORAZEPAM 2 MG INJ IV ×3 (06:34→20:20)
[2017-05-11] MEDS: ESCITALOPRAM 10 MG TAB PO (08:38)
[2017-05-11] MEDS: FLUCONAZOLE 100 MG TAB PO (08:38)
[2017-05-11] MEDS: POTASSIUM CHLORIDE (SR) 20 MEQ TAB PO (08:38)
[2017-05-11] MEDS: ASPIRIN (EC) 81 MG TAB PO (08:38)
[2017-05-11] MEDS: SALMETEROL/FLUTICASONE 250/50 INHA INH ×2 (08:38→20:19)
[2017-05-11] MEDS: METHYLPREDNISOLONE 40 MG INJ IV (08:39)
[2017-05-11] MEDS: INSULIN ASPART [NOVOLOG] 3 ML PEN SC ×8 (08:42→20:23)
[2017-05-11] MEDS: NPH, HUMAN INSULIN ISOPHANE 3ML VIAL SC (08:42)
[2017-05-11] MEDS: HEPARIN 5,000 UNIT/0.5 ML VIAL SC ×2 (08:43→20:35)
[2017-05-11] MEDS: DOXYCYCLINE 100 MG TAB PO ×2 (08:44→20:19)
[2017-05-11] MEDS: INSULIN GLARGINE [LANtus] 3 ML PEN SC ×2 (08:44→20:42)
[2017-05-11 08:46] LABS: ADD MAN DIFF? NO
[2017-05-11 08:51] LABS: BASOPHILS % 0.1 % (0.0-2.0); HEMATOCRIT 30.3 % (37.0-47.0); HEMOGLOBIN 9.7 g/dl (12.0-16.0); LYMPHOCYTES # 0.8 10^3/ul (0.8-2.9); LYMPHOCYTES % 9.9 % (15.0-51.0); MEAN CORPUSCULAR VOLUME 87.6 fl (82.0-101.0); MEAN PLATELET VOLUME 10.5 fl (7.4-10.4); MONOCYTE # 0.5 10^3/ul (0.3-0.9); MONOCYTES % 5.8 % (0.0-11.0); NEUTROPHIL # 6.7 10^3/ul (1.6-7.5); NEUTROPHILS % 83.6 % (39.0-77.0); PLATELET COUNT 282 10^3/UL (140-415); RED BLOOD COUNT 3.46 10^6/ul (4.20-5.40); RED CELL DISTRIBUTION WIDTH 17.2 % (11.5-14.5)
[2017-05-11 09:25] LABS: ANION GAP 14 (8-16); BLOOD UREA NITROGEN 42 mg/dl (7-20); CARBON DIOXIDE 25 mmol/L (21-31); CHLORIDE 99 mmol/L (97-110); CREATININE 1.15 mg/dl (0.44-1.00); GLUCOSE 245 mg/dl (70-220); POTASSIUM 4.9 mmol/L (3.5-5.1); SODIUM 133 mmol/L (135-144)
[2017-05-11] MEDS: DOCUSATE SODIUM 100 MG CAP PO (12:12)
[2017-05-11] MEDS: BISACODYL (EC) 5 MG TAB PO (12:12)
[2017-05-11] MEDS ORDERED: LACTULOSE 30ML CUP PO (16:00)
[2017-05-11] MEDS: LACTULOSE 30ML CUP PO (16:12)
[2017-05-11] MEDS: ACETAMINOPHEN 325 MG TAB PO (17:41)
[2017-05-11] MEDS: ATORVASTATIN 20 MG TAB PO (20:19)
[2017-05-11] MEDS: GLUCOSE GEL 15 GRAM TUBE PO (21:27)
[2017-05-12] MEDS: ALBUTEROL/IPRATROPIUM (NEB) 3 ML AMP HHN ×6 (00:51→21:05)
[2017-05-12] MEDS: ACCU-CHEK XX (02:00)
[2017-05-12] MEDS: LEVOFLOXACIN 500 MG TAB PO (05:34)
[2017-05-12 06:22] LABS: ADD MAN DIFF? NO
[2017-05-12 06:40] LABS: WHITE BLOOD COUNT 10.2 10^3/ul (4.8-10.8)
[2017-05-12 06:40] LABS: BASOPHILS % 0.1 % (0.0-2.0); EOSINOPHILS % 0.4 % (0.0-7.0); HEMOGLOBIN 10.2 g/dl (12.0-16.0); LYMPHOCYTES # 1.9 10^3/ul (0.8-2.9); LYMPHOCYTES % 18.6 % (15.0-51.0); MEAN CORPUSCULAR HGB CONC 31.9 g/dl (32.0-37.0); MEAN CORPUSCULAR VOLUME 87.9 fl (82.0-101.0); MEAN PLATELET VOLUME 10.2 fl (7.4-10.4); MONOCYTE # 0.7 10^3/ul (0.3-0.9); NEUTROPHIL # 7.5 10^3/ul (1.6-7.5); NEUTROPHILS % 73.2 % (39.0-77.0); PLATELET COUNT 297 10^3/UL (140-415); RED BLOOD COUNT 3.64 10^6/ul (4.20-5.40); RED CELL DISTRIBUTION WIDTH 17.1 % (11.5-14.5)
[2017-05-12] MEDS: PANTOPRAZOLE (EC) 40 MG TAB PO (06:40)
[2017-05-12] MEDS: LEVOTHYROXINE 50 MCG TAB PO (06:40)
[2017-05-12 06:48] LABS: PARTIAL THROMBOPLASTIN TIME 23.7 Sec (25.0-35.0); PROTIME 13.3 Sec (11.9-14.9)
[2017-05-12 07:02] LABS: ALANINE AMINOTRANSFERASE 41 IU/L (13-69); ALBUMIN 3.2 g/dl (3.3-4.9); ALKALINE PHOSPHATASE 46 IU/L (42-121); ANION GAP 13 (8-16); ASPARTATE AMINO TRANSFERASE 37 IU/L (15-46); BILIRUBIN,INDIRECT 0.3 mg/dl (0-1.1); BILIRUBIN,TOTAL 0.3 mg/dl (0.2-1.3); BLOOD UREA NITROGEN 44 mg/dl (7-20); CALCIUM 9.2 mg/dl (8.4-10.2); CARBON DIOXIDE 25 mmol/L (21-31); CHLORIDE 102 mmol/L (97-110); CREATININE 1.28 mg/dl (0.44-1.00); GLUCOSE 127 mg/dl (70-220); POTASSIUM 4.1 mmol/L (3.5-5.1); SODIUM 136 mmol/L (135-144); TOTAL PROTEIN 6.1 g/dl (6.1-8.1)
[2017-05-12] MEDS: INSULIN ASPART [NOVOLOG] 3 ML PEN SC ×7 (07:55→20:21)
[2017-05-12] MEDS: INSULIN GLARGINE [LANtus] 3 ML PEN SC ×2 (08:58→20:20)
[2017-05-12] MEDS: predniSONE 20 MG TAB PO (09:00)
[2017-05-12] MEDS: NPH, HUMAN INSULIN ISOPHANE 3ML VIAL SC (09:02)
[2017-05-12] MEDS: SALMETEROL/FLUTICASONE 250/50 INHA INH ×2 (09:05→20:08)
[2017-05-12] MEDS: DOXYCYCLINE 100 MG TAB PO (09:06)
[2017-05-12] MEDS: FLUCONAZOLE 100 MG TAB PO (09:06)
[2017-05-12] MEDS: ESCITALOPRAM 10 MG TAB PO (09:06)
[2017-05-12] MEDS: ASPIRIN (EC) 81 MG TAB PO (09:06)
[2017-05-12] MEDS: POTASSIUM CHLORIDE (SR) 20 MEQ TAB PO (09:06)
[2017-05-12] MEDS: METOPROLOL 50 MG TAB PO ×2 (09:07→20:09)
[2017-05-12] MEDS: HEPARIN 5,000 UNIT/0.5 ML VIAL SC ×2 (09:08→20:11)
[2017-05-12] MEDS: LORAZEPAM 2 MG INJ IV ×2 (09:23→20:16)
[2017-05-12] MEDS: ATORVASTATIN 20 MG TAB PO (20:09)
[2017-05-12] MEDS: ACETAMINOPHEN 325 MG TAB PO (20:16)
[2017-05-13] MEDS: ALBUTEROL/IPRATROPIUM (NEB) 3 ML AMP HHN ×6 (01:19→20:43)
[2017-05-13] MEDS: ACCU-CHEK XX (02:00)
[2017-05-13] MEDS: LEVOTHYROXINE 50 MCG TAB PO (07:16)
[2017-05-13] MEDS: ACETAMINOPHEN 325 MG TAB PO ×2 (07:16→19:04)
[2017-05-13] MEDS: PANTOPRAZOLE (EC) 40 MG TAB PO (07:16)
[2017-05-13] MEDS: INSULIN ASPART [NOVOLOG] 3 ML PEN SC ×7 (07:54→20:59)
[2017-05-13] MEDS: NPH, HUMAN INSULIN ISOPHANE 3ML VIAL SC (08:38)
[2017-05-13] MEDS: INSULIN GLARGINE [LANtus] 3 ML PEN SC ×2 (08:40→21:15)
[2017-05-13] MEDS: HEPARIN 5,000 UNIT/0.5 ML VIAL SC ×2 (08:43→20:59)
[2017-05-13] MEDS: POTASSIUM CHLORIDE (SR) 20 MEQ TAB PO (08:49)
[2017-05-13] MEDS: METOPROLOL 50 MG TAB PO ×2 (08:50→20:58)
[2017-05-13] MEDS: ASPIRIN (EC) 81 MG TAB PO (08:50)
[2017-05-13] MEDS: ESCITALOPRAM 10 MG TAB PO (08:50)
[2017-05-13] MEDS: SALMETEROL/FLUTICASONE 250/50 INHA INH ×2 (08:51→20:57)
[2017-05-13] MEDS: LORAZEPAM 2 MG INJ IV (08:53)
[2017-05-13] MEDS: CYCLOSPORINE 0.05% OPH DROPERETTE BOTH EYES (20:57)
[2017-05-13] MEDS: ATORVASTATIN 20 MG TAB PO (20:57)
[2017-05-14] MEDS: ALBUTEROL/IPRATROPIUM (NEB) 3 ML AMP HHN ×5 (01:06→16:03)
[2017-05-14] MEDS: ACCU-CHEK XX (02:00)
[2017-05-14] MEDS: PANTOPRAZOLE (EC) 40 MG TAB PO (07:40)
[2017-05-14] MEDS: LEVOTHYROXINE 50 MCG TAB PO (07:40)
[2017-05-14] MEDS: INSULIN ASPART [NOVOLOG] 3 ML PEN SC ×4 (07:54→12:54)
[2017-05-14] MEDS: ESCITALOPRAM 10 MG TAB PO (08:40)
[2017-05-14] MEDS: POTASSIUM CHLORIDE (SR) 20 MEQ TAB PO (08:41)
[2017-05-14] MEDS: ASPIRIN (EC) 81 MG TAB PO (08:42)
[2017-05-14] MEDS: SALMETEROL/FLUTICASONE 250/50 INHA INH (08:42)
[2017-05-14] MEDS: METOPROLOL 50 MG TAB PO (08:42)
[2017-05-14] MEDS: CYCLOSPORINE 0.05% OPH DROPERETTE BOTH EYES (08:42)
[2017-05-14] MEDS: HEPARIN 5,000 UNIT/0.5 ML VIAL SC (08:51)
[2017-05-14] MEDS: INSULIN GLARGINE [LANtus] 3 ML PEN SC (09:15)
[2017-05-14] MEDS: ACETAMINOPHEN 325 MG TAB PO (10:16)
[2017-05-14] MEDS: ONDANSETRON 4 MG INJ IV (10:16)
[2017-05-14] MEDS: LORAZEPAM 2 MG INJ IV (10:16)
== END 2017-05-14 17:20 | DRG 871 ==
LOC: TEL 05-09 00:23 → E/R 21:49 → ICU 05-02 01:21
DX: A41.9 Sepsis, unspecified organism (principal); J96.01 Acute respiratory failure with hypoxia; R65.21 Severe sepsis with septic shock; N17.9 Acute kidney failure, unspecified; J18.9 Pneumonia, unspecified organism; E87.2 Acidosis; I11.0 Hypertensive heart disease with heart failure; D69.6 Thrombocytopenia, unspecified; I50.32 Chronic diastolic (congestive) heart failure; J44.0 Chronic obstructive pulmonary disease with (acute) lower respiratory infection; J44.1 Chronic obstructive pulmonary disease with (acute) exacerbation; Z68.41 Body mass index [BMI] 40.0-44.9, adult; E66.2 Morbid (severe) obesity with alveolar hypoventilation; E11.65 Type 2 diabetes mellitus with hyperglycemia; J84.10 Pulmonary fibrosis, unspecified; Z99.81 Dependence on supplemental oxygen; D64.9 Anemia, unspecified; E78.5 Hyperlipidemia, unspecified; E03.9 Hypothyroidism, unspecified; F41.9 Anxiety disorder, unspecified; J30.2 Other seasonal allergic rhinitis; M45.9 Ankylosing spondylitis of unspecified sites in spine; Z87.891 Personal history of nicotine dependence; Z79.4 Long term (current) use of insulin; Z88.6 Allergy status to analgesic agent; Z88.0 Allergy status to penicillin; Z88.8 Allergy status to other drugs, medicaments and biological substances
CPT/HCPCS: 36415; 36600; 71045; 71250; 80048; 80053; 80061; 80202; 81001; 82550; 82553; 82803; 82962; 83036; 83605; 83735; 83880; 84100; 84443; 84484; 85025; 85610; 85730; 86360; 86403; 86480; 86606; 86635; 86644; 86664; 86710; 86738; 87015; 87040; 87070; 87086; 87281; 87385; 87400; 87449; 87497; 89220; 93005; 93306; 94640; 94644; 94660; 94664; 96365; 96366; 96372; 96375; 96376; 97116; 97163; 97530; 99291-25; J1940

== ENCOUNTER 2017-05-14 17:36 | Inpatient (IN) | payer MEDICARE, BC ==
[2017-05-14] MEDS ORDERED: LACTULOSE 30ML CUP PO ×2 (18:30→18:34)
[2017-05-14] MEDS ORDERED: MAGNESIUM HYDROXIDE 30ML CUP PO (18:30)
[2017-05-14] MEDS ORDERED: LORAZEPAM 2 MG INJ IV (18:34)
[2017-05-14] MEDS ORDERED: HEPARIN 5,000 UNIT/0.5 ML VIAL SC (18:34)
[2017-05-14] MEDS ORDERED: METOPROLOL 50 MG TAB PO (18:34)
[2017-05-14] MEDS ORDERED: ALPRAZOLAM 0.5 MG TAB PO (18:34)
[2017-05-14] MEDS ORDERED: BISACODYL (EC) 5 MG TAB PO (18:34)
[2017-05-14] MEDS ORDERED: ONDANSETRON 4 MG INJ IV (18:34)
[2017-05-14] MEDS ORDERED: hydrALAzine 20 MG INJ IV (18:34)
[2017-05-14] MEDS ORDERED: GLUCAGON 1 MG INJ IM (18:34)
[2017-05-14] MEDS ORDERED: LORATADINE 10 MG TAB PO (18:34)
[2017-05-14] MEDS ORDERED: ALBUTEROL HFA 8 GM INHALER INH (18:34)
[2017-05-14] MEDS ORDERED: ACETAMINOPHEN 325 MG TAB PO (18:34)
[2017-05-14] MEDS ORDERED: DOCUSATE SODIUM 100 MG CAP PO (18:34)
[2017-05-14] MEDS ORDERED: INSULIN ASPART [NOVOLOG] 3 ML PEN SC (18:34)
[2017-05-14] MEDS ORDERED: DEXTROSE 50% 50 ML SYRINGE IV ×4 (18:34)
[2017-05-14] MEDS ORDERED: GLUCOSE GEL 15 GRAM TUBE PO ×2 (18:34)
[2017-05-14] MEDS ORDERED: GLUCOSE GEL 15 GRAM TUBE BUCCAL (18:34)
[2017-05-14] MEDS ORDERED: NACL 0.9% 3 ML SYG IV (18:34)
[2017-05-14] MEDS ORDERED: PENDING SANTYL ORDER FOR WOUND CARE XX (19:00)
[2017-05-14] MEDS: ACETAMINOPHEN 325 MG TAB PO (19:33)
[2017-05-14] MEDS: ATORVASTATIN 20 MG TAB PO (20:37)
[2017-05-14] MEDS: SALMETEROL/FLUTICASONE 250/50 INHA INH (20:38)
[2017-05-14] MEDS: CYCLOSPORINE 0.05% OPH DROPERETTE BOTH EYES (20:38)
[2017-05-14] MEDS: DOCUSATE SODIUM 100 MG CAP PO (20:38)
[2017-05-14] MEDS: SENNA TAB PO (20:41)
[2017-05-14] MEDS: INSULIN GLARGINE [LANtus] 3 ML PEN SC (20:49)
[2017-05-14] MEDS: ALBUTEROL/IPRATROPIUM (NEB) 3 ML AMP HHN (21:03)
[2017-05-14] MEDS: ALPRAZOLAM 0.25 MG TAB PO (21:06)
[2017-05-14 23:16] LABS: ADD UMIC NO; UR ASCORBIC ACID NEGATIVE (NEGATIVE); UR BILIRUBIN (Dip) NEGATIVE (NEGATIVE); UR BLOOD (Dip) NEGATIVE (NEGATIVE); UR CLARITY CLEAR (CLEAR); UR COLOR YELLOW (YELLOW); UR GLUCOSE (Dip) NEGATIVE (NEGATIVE); UR KETONES (Dip) NEGATIVE (NEGATIVE); UR LEUKOCYTE ESTERASE (Dip) NEGATIVE Leu/ul (NEGATIVE); UR NITRITE (Dip) NEGATIVE (NEGATIVE); UR SPECIFIC GRAVITY (Dip) 1.008 (1.003-1.030); UR TOTAL PROTEIN (Dip) NEGATIVE (NEGATIVE); UR UROBILINOGEN (Dip) NEGATIVE (NEGATIVE)
[2017-05-15] MEDS: ALBUTEROL/IPRATROPIUM (NEB) 3 ML AMP HHN ×5 (00:04→20:06)
[2017-05-15] MEDS: ACCU-CHEK XX (02:00)
[2017-05-15] MEDS: PANTOPRAZOLE (EC) 40 MG TAB PO (06:08)
[2017-05-15] MEDS: LEVOTHYROXINE 50 MCG TAB PO (06:08)
[2017-05-15] MEDS: SALMETEROL/FLUTICASONE 250/50 INHA INH ×2 (08:26→20:14)
[2017-05-15] MEDS: INSULIN ASPART [NOVOLOG] 3 ML PEN SC ×4 (08:26→21:00)
[2017-05-15] MEDS: ASPIRIN (EC) 81 MG TAB PO (08:27)
[2017-05-15] MEDS: DOCUSATE SODIUM 100 MG CAP PO ×2 (08:27→21:00)
[2017-05-15] MEDS: ESCITALOPRAM 10 MG TAB PO (08:28)
[2017-05-15] MEDS: POTASSIUM CHLORIDE (SR) 20 MEQ TAB PO (08:28)
[2017-05-15] MEDS: METOPROLOL (XL) 100 MG TAB PO (08:29)
[2017-05-15] MEDS: INSULIN GLARGINE [LANtus] 3 ML PEN SC ×2 (08:30→20:23)
[2017-05-15] MEDS: CYCLOSPORINE 0.05% OPH DROPERETTE BOTH EYES ×2 (08:36→20:11)
[2017-05-15 11:33] LABS: ADD MAN DIFF? NO
[2017-05-15 11:35] LABS: BASOPHILS % 0.2 % (0.0-2.0); EOSINOPHILS # 0.1 10^3/ul (0.0-0.5); EOSINOPHILS % 1.1 % (0.0-7.0); HEMATOCRIT 31.1 % (37.0-47.0); HEMOGLOBIN 9.9 g/dl (12.0-16.0); LYMPHOCYTES # 1.4 10^3/ul (0.8-2.9); LYMPHOCYTES % 16.5 % (15.0-51.0); MEAN CORPUSCULAR HEMOGLOBIN 28.2 pg (29.0-33.0); MEAN CORPUSCULAR HGB CONC 31.8 g/dl (32.0-37.0); MEAN CORPUSCULAR VOLUME 88.6 fl (82.0-101.0); MEAN PLATELET VOLUME 9.9 fl (7.4-10.4); MONOCYTE # 0.6 10^3/ul (0.3-0.9); MONOCYTES % 7.3 % (0.0-11.0); NEUTROPHIL # 6.2 10^3/ul (1.6-7.5); NEUTROPHILS % 74.5 % (39.0-77.0); PLATELET COUNT 235 10^3/UL (140-415); RED BLOOD COUNT 3.51 10^6/ul (4.20-5.40); RED CELL DISTRIBUTION WIDTH 17.2 % (11.5-14.5)
[2017-05-15 11:35] LABS: WHITE BLOOD COUNT 8.3 10^3/ul (4.8-10.8)
[2017-05-15 12:24] LABS: ALANINE AMINOTRANSFERASE 40 IU/L (13-69); ALBUMIN 3.3 g/dl (3.3-4.9); ALBUMIN/GLOBULIN RATIO 1.13; ALKALINE PHOSPHATASE 50 IU/L (42-121); ANION GAP 10 (8-16); ASPARTATE AMINO TRANSFERASE 33 IU/L (15-46); BILIRUBIN,INDIRECT 0.2 mg/dl (0-1.1); BILIRUBIN,TOTAL 0.2 mg/dl (0.2-1.3); BLOOD UREA NITROGEN 31 mg/dl (7-20); CALCIUM 9.1 mg/dl (8.4-10.2); CARBON DIOXIDE 29 mmol/L (21-31); CHLORIDE 101 mmol/L (97-110); CREATININE 1.26 mg/dl (0.44-1.00); GLUCOSE 204 mg/dl (70-220); SODIUM 135 mmol/L (135-144); TOTAL PROTEIN 6.2 g/dl (6.1-8.1)
[2017-05-15] MEDS: ACETAMINOPHEN 325 MG TAB PO (14:40)
[2017-05-15] MEDS ORDERED: ONDANSETRON 4 MG INJ IV (19:30)
[2017-05-15] MEDS: ALPRAZOLAM 0.25 MG TAB PO (20:11)
[2017-05-15] MEDS: ATORVASTATIN 20 MG TAB PO (20:11)
[2017-05-15] MEDS: SENNA TAB PO (21:00)
[2017-05-16] MEDS: ALBUTEROL/IPRATROPIUM (NEB) 3 ML AMP HHN ×6 (01:22→20:11)
[2017-05-16] MEDS: ACCU-CHEK XX (02:20)
[2017-05-16] MEDS: ACETAMINOPHEN 325 MG TAB PO (04:53)
[2017-05-16] MEDS: PANTOPRAZOLE (EC) 40 MG TAB PO (07:07)
[2017-05-16] MEDS: LEVOTHYROXINE 50 MCG TAB PO (07:07)
[2017-05-16] MEDS: INSULIN ASPART [NOVOLOG] 3 ML PEN SC ×9 (08:28→20:50)
[2017-05-16] MEDS: INSULIN GLARGINE [LANtus] 3 ML PEN SC ×2 (08:31→20:50)
[2017-05-16] MEDS: DOCUSATE SODIUM 100 MG CAP PO ×2 (09:00→20:50)
[2017-05-16] MEDS: POTASSIUM CHLORIDE (SR) 20 MEQ TAB PO (09:54)
[2017-05-16] MEDS: CYCLOSPORINE 0.05% OPH DROPERETTE BOTH EYES ×2 (09:54→20:43)
[2017-05-16] MEDS: ESCITALOPRAM 10 MG TAB PO (09:54)
[2017-05-16] MEDS: ASPIRIN (EC) 81 MG TAB PO (09:54)
[2017-05-16] MEDS: SALMETEROL/FLUTICASONE 250/50 INHA INH ×2 (09:56→20:43)
[2017-05-16] MEDS: METOPROLOL (XL) 100 MG TAB PO (09:56)
[2017-05-16] MEDS: ATORVASTATIN 20 MG TAB PO (20:42)
[2017-05-16] MEDS: ALPRAZOLAM 0.25 MG TAB PO (20:43)
[2017-05-16] MEDS: SENNA TAB PO (20:50)
[2017-05-17] MEDS: ALBUTEROL/IPRATROPIUM (NEB) 3 ML AMP HHN ×6 (00:32→20:05)
[2017-05-17] MEDS: ACCU-CHEK XX (02:00)
[2017-05-17] MEDS: ACETAMINOPHEN 325 MG TAB PO ×2 (02:59→20:58)
[2017-05-17] MEDS: LEVOTHYROXINE 50 MCG TAB PO (06:18)
[2017-05-17] MEDS: PANTOPRAZOLE (EC) 40 MG TAB PO (06:18)
[2017-05-17] MEDS: INSULIN ASPART [NOVOLOG] 3 ML PEN SC ×7 (08:28→20:56)
[2017-05-17] MEDS: DOCUSATE SODIUM 100 MG CAP PO ×2 (09:00→20:54)
[2017-05-17] MEDS: ESCITALOPRAM 10 MG TAB PO (09:19)
[2017-05-17] MEDS: SALMETEROL/FLUTICASONE 250/50 INHA INH ×2 (09:20→20:54)
[2017-05-17] MEDS: METOPROLOL (XL) 100 MG TAB PO (09:20)
[2017-05-17] MEDS: CYCLOSPORINE 0.05% OPH DROPERETTE BOTH EYES ×2 (09:20→20:54)
[2017-05-17] MEDS: POTASSIUM CHLORIDE (SR) 20 MEQ TAB PO (09:20)
[2017-05-17] MEDS: ASPIRIN (EC) 81 MG TAB PO (09:20)
[2017-05-17] MEDS: INSULIN GLARGINE [LANtus] 3 ML PEN SC ×2 (09:31→20:56)
[2017-05-17] MEDS: ATORVASTATIN 20 MG TAB PO (20:54)
[2017-05-17] MEDS: SENNA TAB PO (21:00)
[2017-05-17] MEDS: ALPRAZOLAM 0.25 MG TAB PO (21:06)
[2017-05-18] MEDS: ALBUTEROL/IPRATROPIUM (NEB) 3 ML AMP HHN ×6 (00:16→21:29)
[2017-05-18] MEDS: ACCU-CHEK XX (01:50)
[2017-05-18] MEDS: PANTOPRAZOLE (EC) 40 MG TAB PO (06:26)
[2017-05-18] MEDS: LEVOTHYROXINE 50 MCG TAB PO (06:26)
[2017-05-18] MEDS: INSULIN ASPART [NOVOLOG] 3 ML PEN SC ×7 (07:35→21:00)
[2017-05-18] MEDS: DOCUSATE SODIUM 100 MG CAP PO ×2 (09:22→21:00)
[2017-05-18] MEDS: SALMETEROL/FLUTICASONE 250/50 INHA INH ×2 (09:22→20:55)
[2017-05-18] MEDS: ESCITALOPRAM 10 MG TAB PO (09:22)
[2017-05-18] MEDS: ASPIRIN (EC) 81 MG TAB PO (09:22)
[2017-05-18] MEDS: POTASSIUM CHLORIDE (SR) 20 MEQ TAB PO (09:22)
[2017-05-18] MEDS: CYCLOSPORINE 0.05% OPH DROPERETTE BOTH EYES ×2 (09:23→20:55)
[2017-05-18] MEDS: METOPROLOL (XL) 100 MG TAB PO (09:23)
[2017-05-18] MEDS: INSULIN GLARGINE [LANtus] 3 ML PEN SC ×2 (09:24→21:02)
[2017-05-18] MEDS: ACETAMINOPHEN 325 MG TAB PO (11:27)
[2017-05-18] MEDS: ATORVASTATIN 20 MG TAB PO (20:55)
[2017-05-18] MEDS: SENNA TAB PO (21:00)
[2017-05-18] MEDS: ALPRAZOLAM 0.25 MG TAB PO (21:04)
[2017-05-19] MEDS: ALBUTEROL/IPRATROPIUM (NEB) 3 ML AMP HHN ×3 (01:58→09:48)
[2017-05-19] MEDS: ACCU-CHEK XX (02:00)
[2017-05-19] MEDS: PANTOPRAZOLE (EC) 40 MG TAB PO (06:59)
[2017-05-19] MEDS: LEVOTHYROXINE 50 MCG TAB PO (06:59)
[2017-05-19] MEDS: INSULIN ASPART [NOVOLOG] 3 ML PEN SC ×2 (08:07→08:09)
[2017-05-19] MEDS: ESCITALOPRAM 10 MG TAB PO (08:58)
[2017-05-19] MEDS: ASPIRIN (EC) 81 MG TAB PO (08:58)
[2017-05-19] MEDS: DOCUSATE SODIUM 100 MG CAP PO (08:58)
[2017-05-19] MEDS: POTASSIUM CHLORIDE (SR) 20 MEQ TAB PO (08:58)
[2017-05-19] MEDS: SALMETEROL/FLUTICASONE 250/50 INHA INH (09:03)
[2017-05-19] MEDS: INSULIN GLARGINE [LANtus] 3 ML PEN SC (09:36)
[2017-05-19] MEDS: METOPROLOL (XL) 100 MG TAB PO (09:53)
== END 2017-05-19 11:45 | disposition home health service (06) | DRG 945 ==
LOC: VRC 17:36
PROVIDERS: Physical Medicine & Rehabilitation
PROC: F07Z5FZ Bed Mobility Treatment using Assistive, Adaptive, Supportive or Protective Equipment (ICD-10-PCS; principal; 2017-05-15)
PROC: F07Z5FZ Bed Mobility Treatment using Assistive, Adaptive, Supportive or Protective Equipment (ICD-10-PCS; 2017-05-15)
PROC: F07Z9FZ Gait Training/Functional Ambulation Treatment using Assistive, Adaptive, Supportive or Protective Equipment (ICD-10-PCS; 2017-05-15)
PROC: F08Z2FZ Grooming/Personal Hygiene Treatment using Assistive, Adaptive, Supportive or Protective Equipment (ICD-10-PCS; 2017-05-15)
PROC: F08Z1FZ Dressing Techniques Treatment using Assistive, Adaptive, Supportive or Protective Equipment (ICD-10-PCS; 2017-05-15)
PROC: F08Z0FZ Bathing/Showering Techniques Treatment using Assistive, Adaptive, Supportive or Protective Equipment (ICD-10-PCS; 2017-05-15)
DX: Z51.89 Encounter for other specified aftercare (principal); J18.9 Pneumonia, unspecified organism; E11.65 Type 2 diabetes mellitus with hyperglycemia; Z99.81 Dependence on supplemental oxygen; J44.1 Chronic obstructive pulmonary disease with (acute) exacerbation; Z68.41 Body mass index [BMI] 40.0-44.9, adult; I10 Essential (primary) hypertension; E78.5 Hyperlipidemia, unspecified; E03.9 Hypothyroidism, unspecified; E66.01 Morbid (severe) obesity due to excess calories; Z79.4 Long term (current) use of insulin; Z87.891 Personal history of nicotine dependence; Z90.49 Acquired absence of other specified parts of digestive tract; Z79.82 Long term (current) use of aspirin
CPT/HCPCS: 80053; 81003; 82962; 85025; 87081; 87086; 94640; 97110; 97112; 97116; 97150; 97163; 97167; 97530; 97535; 97542